=== PATIENT | male | born 1965 | race Caucasian/White ===

== ENCOUNTER → 2016-08-14 | Outpatient (CLI) | payer BC ==
[~2016-08-14] MED LIST: ALBUTEROL17 GM INH; BENTYL20 MG PO; BUDESONIDE EC3 MG PO; LIALDA1.2 G PO; MULTI VITAMIN1 EACH PO; NEXIUM PO; NORCO 10-325 TA1 TAB PO; SYMBICORT 16010.2 GM IH; UCERIS9 MG PO
--- NOTE | ~2016-08-14 | MR82 ---
[facility] A Service of [facility] & [facility] RADIOLOGY TEXT RESULTS PATIENT: FER DEL VALLE LOCATION: [facility] : 61 UNIT #: [id number] AGE: [address]: Cristobal Romero MD SEX: M ORDER DR: [id number] [address] [address] [id number] MR#: [id number] Acc #: [id number] NAME: FER DEL VALLE : 1965 SEX: M STUDY DATE/TIME: 08/14/2016 15:01 UNIT: [facility] ROOM: STUDY DESCRIPTION: MR Hip Wo Contrast Cristopher Attending Physician: Cristobal Romero M.D. Referring Physician: Cristobal Romero M.D. Ordering Physician: Cristobal Romero M.D. Primary Care Physician: Arlin Tello M.D. MRI CENTER REPORT This report is preliminary unless electronic signature is present. EXAM MRI of the hips. HISTORY 51-year-old male bilateral hip pain, history of [facility] steroid use, smoker. Complains of right greater than left hip pain for 7-8 months. Clinical concern for avascular necrosis. COMPARISON Right hip and pelvis 02/18/2016 FINDINGS Multiplanar, multiecho imaging was performed of the hips and pelvis utilizing a high field magnet and dedicated protocol. Examination demonstrates abnormal marrow signal within both femoral heads, right greater than left, compatible with avascular necrosis. Extensive involvement of the right femoral head with estimated greater than 75% involvement of the surface area of the right femoral head. There is also a small right hip effusion suggesting active synovitis. Some marrow edema within the right femoral head does imply an active process. There may be very minimal subchondral collapse of the right femoral head. The left femoral head also demonstrates a foci of avascular necrosis with serpiginous T1 and T2 signal abnormality. This is estimated to involve less than 25% of the surface area of the left femoral head. No significant hip effusion. Pelvic and proximal thigh musculature appears normal. Internal pelvic structures unremarkable. 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 Within the left hip, there is very subtle subchondral collapse with marrow edema [facility] A Service of [facility] & [facility] RADIOLOGY TEXT RESULTS PATIENT: FER DEL VALLE LOCATION: [facility] : [birth year] UNIT #: [id number] AGE: [address]: Cristobal Romero MD SEX: M ORDER DR: as well as a joint effusion all compatible with an active process and active synovitis. Involving the left hip is estimated at less than 25%. Within the right hip, there is greater than 75% involvement. Dictated by... Lane Vasquez M.D. THIS IS AN ELECTRONICALLY VERIFIED REPORT Lane Vasquez M.D. at 08/16/2016 9:37 AM MARTINEZ/kimberly TD: 08/15/2016 09:45 JOB #: [id number] MRI CENTER REPORT Page 1 of 1
== END | disposition home or self-care (01) ==
LOC: SMRI 13:40
DX: M25.551 Pain in right hip (principal); M25.552 Pain in left hip
CPT/HCPCS: 73721